=== PATIENT | male | born 1965 | race Hispanic/Latino ===

== ENCOUNTER → 2017-02-18 | Outpatient (CLI) | payer OTHER | END | disposition home or self-care (01) | LOC: LAB.O 15:09 | PROVIDERS: ATTEND Urology | DX: R97.20 Elevated prostate specific antigen [PSA] (principal) ==

== ENCOUNTER → 2017-10-16 | Outpatient (CLI) | payer OTHER ==
--- NOTE | 2017-10-16 09:21 | CT ---
EXAM DESCRIPTION: Abdoment/Pelvis w/o Contrast CLINICAL HISTORY: 52 years, Male, ABD PAIN COMPARISON: None. TECHNIQUE: CT of the abdomen and pelvis is performed according to our non contrast protocol. FINDINGS: Nodule in the right lower lobe measures 7 mm in diameter. See recommendations for follow-up below. The lung bases are otherwise clear. Liver, spleen, and pancreas are unremarkable. The right kidney is unremarkable. Tiny hypodensity in the mid to lower left kidney anteriorly suggests a 1 mm stone. No obstructive uropathy on either side. Small bowel loops appear normal in caliber with normal wall thickness. There is no lymphadenopathy, inflammation, or free fluid observed. In the pelvis, the appendix is surgically absent. No inflammation around the cecum or terminal ileum or sigmoid colon. Sigmoid diverticula are present without acute appearing inflammation. No stones in the distal ureters or bladder. Rectal wall thickness is normal for degree of distention. No free fluid or mass in the pelvis. Prostate appears prominent measuring 4.7 cm in transverse dimension. No inguinal or lower pelvic adenopathy. Coronal and sagittal reformatted images confirm the findings. Stone in the left kidney is confirmed 1-2 mm in size. IMPRESSION: 1 to 2 mm left renal calculus without obstructive uropathy. Prominent prostate. Right lower lobe nodule measures 7 mm. Follow-up as per Fleischner Society recommendations below. 2017 Fleischner Society Recommendations for Single Solid Lung Nodule Follow-Up based on size (average of long- and short-axis diameters) 6-8 mm Low-Risk Patient: CT at 6-[address] at 18-24 months 6-8 mm High-Risk Patient: CT at 6-[address] at 18-24 months This exam was performed according to our departmental dose-optimization program, which includes automated exposure control, adjustment of the mA and/or kV according to patient size and/or use of iterative reconstruction technique. Total DLP equals 732.74 mGycm. Electronically signed by: Joshua Johnson MD 10/16/2017 9:19 AM CDT
== END ==
LOC: CT 08:03
PROVIDERS: ATTEND Family Medicine
DX: R10.32 Left lower quadrant pain (principal); N20.0 Calculus of kidney; R91.1 Solitary pulmonary nodule

== ENCOUNTER → 2020-06-27 | Outpatient (CLI) | payer BC, OTHER ==
--- NOTE | 2020-06-27 17:02 | MRI ---
EXAM DESCRIPTION: Knee,Right CLINICAL HISTORY: RIGHT KNEE PAIN. Medial knee pain after running. COMPARISON: 06/19/2020. TECHNIQUE: MRI of the right knee is performed with multiplanar multi sequence imaging, without intravenous contrast. FINDINGS: Bone and joint: No focal bony contusion or acute fracture. Mild knee osteoarthrosis with tiny tricompartmental osteophyte formation. Small knee joint effusion. Cartilage: Grade 2-3 chondrosis involves the medial knee compartment central weightbearing surface. Grade two chondrosis involves the lateral knee compartment. Grade 2-3 chondrosis involves the patellofemoral compartment at the lateral patella facet/patellar apex and medial trochlear. Medial meniscus: Complex degenerative tears of the posterior body extending to the posterior horn along the undersurface. Degenerative free edge tears. Para meniscal cyst adjacent to the posterior meniscal root measures 1.1 cm. Lateral meniscus: Degenerative intrasubstance signal with mild undersurface fraying along the anterior horn. Suspect tiny peripheral tear of the posterior horn (series 4 one image 25). No displaced meniscal fragment. Anterior cruciate ligament: Intact. Mild mucoid degeneration superiorly. Posterior cruciate ligament: Intact Medial collateral ligament: Intact Lateral collateral ligament: Intact Popliteus tendon: Intact Biceps femoris tendon: Intact Iliotibial band: Intact Medial and lateral retinaculum: Intact Extensor mechanism: The distal quadriceps tendon is intact. The patella tendon is intact. Soft tissues: Mild posterior medial knee joint capsular edema/capsulitis. Mild prepatellar bursal fluid/bursitis. Ganglion cyst associated with the semimembranosus distal insertional fibers measures at least 2.6 x 1.2 cm. No Doyle's cyst. IMPRESSION: 1. Medial meniscus complex degenerative tears. Small para meniscal cysts adjacent to the posterior horn measures 1.1 cm. 2. Lateral meniscus mild degeneration undersurface fraying with suspect tiny nondisplaced peripheral tear along the posterior horn. 3. Mild posterior medial knee joint capsular edema/capsulitis. 4. Semimembranosus distal tendon ganglion cyst measures 2.6 cm. 5. Mild knee osteoarthrosis with scattered tricompartmental intermediate grade chondrosis. Small knee joint effusion. 6. Mild prepatellar bursitis. Electronically signed by: Leland Wright DO 06/27/2020 5:01 PM [employer]
== END ==
LOC: MRI 08:09
PROVIDERS: ATTEND Family Medicine
DX: S83.232A Complex tear of medial meniscus, current injury, left knee, initial encounter (principal); M23.031 Cystic meniscus, other medial meniscus, right knee; M23.361 Other meniscus derangements, other lateral meniscus, right knee; M17.11 Unilateral primary osteoarthritis, right knee; M94.261 Chondromalacia, right knee; M70.41 Prepatellar bursitis, right knee; M67.461 Ganglion, right knee